=== PATIENT | male | born 1960 | race Caucasian/White ===

== ENCOUNTER 2019-09-01 08:15 | Emergency (ER) | payer BC, SELFPAY ==
--- NOTE | 2019-09-01 08:20 | USCV_ITS ---
Jimi Fuller Age: 59 Gender: M : 1960 Exam Date: 09/01/2019 09:24 Ordering Phys: Holly Moreno Technologist: Mercedez Dunbar Exam Location: [facility] [place] Indication: cold left leg Risk Factors: Smoker Previous Vascular Surgery: None RIGHT LEFT BP: 108.0 / BP: 106.0/ 0 0 Waveform Velocity (cm/s) Velocity (cm/s) Waveform Iliac Prox 67.6 Triphasic Iliac Mid 48.2 Triphasic Iliac Distal Triphasic 36.8 PELLET POST INSPECTOR 67.7 Triphasic SFA Prox 40.1 Triphasic SFA Mid 59.2 Triphasic SFA Dist 32.0 Triphasic POP 26.1 Triphasic MOTORCYCLE SERVICE TECHNICIAN 42.7 Triphasic DPA 36.8 Triphasic RAND 1.1 FINDINGS Normal resting RAND on the left side. Normal arterial Doppler waveforms. Normal Doppler flow velocities CONCLUSIONS No evidence of any significant arterial obstruction, based on the above findings. Dr Stefan Tsang MD [facility] (Electronically Signed) Final Date: 02 September 2019 09:27 S
[2019-09-01 08:22] VITALS: BP 112/85; PULSE 84; RESP 18; O2SAT 94; BMI 36.3
[2019-09-01 08:32] VITALS: BP 117/76; PULSE 93; RESP 18; TEMP 36.7; O2SAT 96
--- NOTE | 2019-09-01 08:37 | W.ED.EXTPRO ---
HPI - Extremity Problem General: Chief complaint: Extremity Problem,Nontraumatic Stated complaint: LLE COLD, NO PULSE Time Seen by Provider: 09/01/19 08:28 Source: patient Mode of arrival: ambulatory Limitations: no limitations History of Present Illness: HPI Narrative: Patient is a 59-year-old male who presents to ED today with complaints of coolness to his left lower extremity that he noticed a few days ago. 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 He denies any history of peripheral vascular disease. He is not complaining of pain but again has chronic sensory deficits. MD Complaint: cold extremity Onset (ago): day(s) Location: left Associated symptoms: Reports no associated symptoms; Deny chest pain or fever(s) Review of Systems Const: Denies: fever, chills, body aches, change in appetite, change in weight, fatigue or malaise Card: Denies: chest pain, palpitations, irregular heart rhythm, edema, swelling of feet/ankles, lightheadedness, syncope or pre-syncope Resp: Denies: shortness of breath, productive cough, pain on inspiration, coughing up blood or chest congestion Musc: Denies: back pain, extremity pain, extremity swelling, joint pain, joint swelling, redness, joint warmth or joint stiffness Neuro: Reports: numbness in extremities (chronic bilateral LEs); Denies: headache or changes in sensation PFSH ED PFSH: Social History Smoking and tobacco status: never smoked Physical Exam Const: COMMON NORMALS: no apparent distress, oriented x3, no limitations, alert and well nourished NUTRITIONAL APPEARANCE: obese Resp: COMMON NORMALS: normal respiratory effort and clear to auscultation bilaterally AUSCULTATION: clear to auscultation bilaterally Cardio: COMMON NORMALS: regular rate and regular rhythm RATE: regular rate RHYTHM: regular rhythm Extremity: OTHER: Patient's left ankle and foot are noticeably cooler than his right. He has a clearly palpable DP pulse. Weakly palpable PT pulse. Femoral pulses are palpated. Extremity is warm and equal to his right from groin down to lower leg. There is no swelling noticed to either extremity. No redness or warmth. Neuro: COMMON NORMALS: oriented x3 SENSORIUM/ORIENTATION: Yes alert Skin: COMMON NORMALS: no rashes or lesions noted GENERAL SKIN EXAM: no rashes or lesions noted, atrophy (bilateral LEs chronically), no ecchymo, no erythema, no petechiae and no pallor Course Vital Signs: Vital signs: Vital Signs Temperature 98.1 F 09/01/19 08:32 Pulse Rate 68 09/01/19 10:06 Respiratory Rate 16 09/01/19 10:06 Blood Pressure 126/73 09/01/19 10:06 Pulse Oximetry 96 09/01/19 10:06 MDM - Extremity (Nontraumatic) Lab Data: Labs: Lab Results 09/01/19 09/01/19 09/01/19 Range/Units 08:50 08:50 08:50 WBC 8.6 (4.0-10.0) 10^3/ uL RBC 5.01 (4.1-5.3) 10^6/u L Hgb 14.9 (11.7-16.6) g/dL Hct 45.2 (42.0-52.0) % MCV 90.2 (80-94) fL MCH 29.7 (28.0-34.0) pg MCHC 33.0 (30.0-36.0) g/dL RDW 13.0 (12.1-15.1) % Plt Count 219 (130-400) 10^3/c mm MPV 11.1 H (7.4-10.4) fL Neut % (Auto) 60.4 % Lymph % (Auto) 24.4 % [place] % (Auto) 12.0 % Eos % (Auto) 2.1 % Baso % (Auto) 0.6 % Neut # (Auto) 5.2 (1.8-7.7) 10^3/u L Lymph # (Auto) 2.1 (0.8-4.8) 10^3/u L [place] # (Auto) 1.0 H (0.2-0.9) 10^3/u L Eos # (Auto) 0.2 (0.0-0.8) 10^3/u L Baso # (Auto) 0.1 (0.0-0.1) 10^3/u L Nucleated RBC % (a uto) 0 % Nucleated RBCs # 0.0 /100WBC PT 13.50 H (10.5-13.3) SECO NDS INR 1.03 (0.8-1.2) APTT 27.7 (23.9-36.7) SECO NDS Sodium 137 (136-145) mmol/L Potassium 3.9 (3.5-5.1) mmol/L Chloride 102 (98-107) mmol/L Carbon Dioxide 22 (22-29) mmol/L Anion Gap 16.9 (5-19) BUN 13 (6-20) mg/dL Creatinine 0.7 (0.7-1.2) mg/dL GFR Calculation 116.2 (90-130) mL/min Glucose 102 (65-115) mg/dL Calcium 9.5 (8.5-10.5) mg/dL Total Bilirubin 0.5 (0.15-1.2) mg/dL AST 16 (0-40) U/L ALT 17 (0-41) U/L Alkaline Phosphata se 65 (40-130) IU/L Total Protein 7.0 (6.6-8.7) g/dL Albumin 3.5 (3.5-5.2) g/dL Globulin 3.5 (1.3-4.6) g/dL Imaging Data^: US L LE arterial : Radiologist's impression: triphasic flow throughout entire extremity per US tech Discharge Plan Discharge Patient Disposition: Home, Self-Care Clinical Impression: Cold extremity without peripheral vascular disease Condition: Stable Prescriptions: No Action No Known Home Medications RF: 0 Discharge Orders: Discharge Order (Routine); Ordered 09/01/19 Ordered By: Holly Moreno Referrals: Eldon Waite MD [Family Provider] - Discharge Diet: Usual diet Discharge Activity: Resume usual activity Activity Restrictions/Additional Instructions: As discussed, your arterial ultrasound showed triphasic flow throughout your entire left lower extremity. Please follow up with primary care in the next 1-2 weeks for further evaluation. Discharge Date/Time: 09/01/19 10:43 Coding Level of Care Code ED Set Up Mechanic Stamping Machines for Cat León
[2019-09-01 08:55] LABS: Basophils # 0.1 10^3/uL (0.0-0.1); Basophils % 0.6 %; Eosinophils # 0.2 10^3/uL (0.0-0.8); Eosinophils % 2.1 %; Hematocrit 45.2 % (42.0-52.0); Hemoglobin 14.9 g/dL (11.7-16.6); Lymphocytes # 2.1 10^3/uL (0.8-4.8); Lymphocytes % 24.4 %; Mean Corpuscular Hemoglobin 29.7 pg (28.0-34.0); Mean Corpuscular Volume 90.2 fL (80-94); Mean Platelet Volume 11.1 fL (7.4-10.4); Neutrophils # 5.2 10^3/uL (1.8-7.7); Neutrophils % 60.4 %; Nucleated Red Blood Cells % 0 %; Platelet Count 219 10^3/cmm (130-400); Red Blood Count 5.01 10^6/uL (4.1-5.3); White Blood Count 8.6 10^3/uL (4.0-10.0)
[2019-09-01 09:09] LABS: Alanine Aminotransferase 17 U/L (0-41); Albumin Level 3.5 g/dL (3.5-5.2); Alkaline Phosphatase 65 IU/L (40-130); Anion Gap 16.9 (5-19); Aspartate Amino Transferase 16 U/L (0-40); Blood Urea Nitrogen 13 mg/dL (6-20); Calcium 9.5 mg/dL (8.5-10.5); Carbon Dioxide 22 mmol/L (22-29); Chloride 102 mmol/L (98-107); Globulin 3.5 g/dL (1.3-4.6); Glomerular Filtration Rate 116.2 mL/min (90-130); Glucose 102 mg/dL (65-115); Potassium 3.9 mmol/L (3.5-5.1); Sodium 137 mmol/L (136-145); Total Bilirubin 0.5 mg/dL (0.15-1.2)
[2019-09-01 09:21] LABS: INR 1.03 (0.8-1.2); Partial Thromboplastin Time 27.7 SECONDS (23.9-36.7)
--- NOTE | 2019-09-01 09:39 | PC.NURSE ---
US at bedside. Patient requesting fluids, informed NPO
[2019-09-01 10:06] VITALS: BP 126/73; PULSE 68; RESP 16; O2SAT 96
== END 2019-09-01 10:43 | disposition home or self-care (01) ==
PROVIDERS: Emergency Provider Physician Assistant; Family Provider Family Medicine; PCP Nurse Practitioner Family
DX: R20.8 Other disturbances of skin sensation (principal); G82.20 Paraplegia, unspecified
CPT/HCPCS: 36415; 80053; 85025; 85610; 85730; 93926; 99282; 99283

== ENCOUNTER → 2022-02-24 08:22 | Outpatient (BNVA) | payer MEDICARE, MEDICAID, SELFPAY | PROVIDERS: Family Provider Family Medicine; PCP Nurse Practitioner Family; Visit Provider Thoracic Surgery (Cardiothoracic Vascular Surgery) | DX: I96 Gangrene, not elsewhere classified (principal); L89.322 Pressure ulcer of left buttock, stage 2 | CPT/HCPCS: 11042; 99203; 99213; A6446 ==

== ENCOUNTER → 2022-02-26 14:57 | Outpatient (BNVA) | payer MEDICARE, MEDICAID, SELFPAY | PROVIDERS: Family Provider Family Medicine; PCP Nurse Practitioner Family; Visit Provider Thoracic Surgery (Cardiothoracic Vascular Surgery) | DX: L89.323 Pressure ulcer of left buttock, stage 3 (principal) | CPT/HCPCS: 99211; A6212; A6446 ==

== ENCOUNTER 2022-02-27 15:32 | Outpatient (CLI) | payer MEDICARE, MEDICAID, SELFPAY ==
--- NOTE | 2022-02-27 15:42 | XRR_ITS ---
PROCEDURE INFORMATION: Exam: XR Pelvis Exam date and time: 02/27/2022 3:53 PM Age: 62 years old Clinical indication: Other: Pressure ulcer of left buttock; Prior surgery; Surgery type: Pelvis bone spurs; Additional info: L89.320 - pressure ulcer of left buttock, unstageable TECHNIQUE: Imaging protocol: Radiologic exam of the pelvis. Views: 1 or 2 view. COMPARISON: No relevant prior studies available. FINDINGS: Bones/joints: Moderate osteoarthritis of the hips bilaterally. Chronic soft tissue calcifications about the hips bilaterally. Soft tissues: See Bones/joints finding. XR/XR pelvis min 3V [id number] IMPRESSION: 1. Moderate osteoarthritis of the hips bilaterally. 2. Chronic soft tissue calcifications about the hips bilaterally.
== END 2022-02-27 15:33 | disposition home or self-care (01) ==
LOC: RAD 15:36
PROVIDERS: PCP Family Medicine; Visit Provider Thoracic Surgery (Cardiothoracic Vascular Surgery)
DX: L89.320 Pressure ulcer of left buttock, unstageable (principal); M16.0 Bilateral primary osteoarthritis of hip
CPT/HCPCS: 72190

== ENCOUNTER → 2022-03-17 08:41 | Outpatient (BNVA) | payer MEDICARE, MEDICAID, SELFPAY | PROVIDERS: PCP Family Medicine; Visit Provider Nurse Practitioner Family | DX: I96 Gangrene, not elsewhere classified (principal); L89.323 Pressure ulcer of left buttock, stage 3 | CPT/HCPCS: 11042; A6197 ==

== ENCOUNTER → 2022-03-24 09:05 | Outpatient (BNVA) | payer MEDICARE, MEDICAID, SELFPAY | PROVIDERS: PCP Family Medicine; Visit Provider Thoracic Surgery (Cardiothoracic Vascular Surgery) | DX: I96 Gangrene, not elsewhere classified (principal); L89.323 Pressure ulcer of left buttock, stage 3 | CPT/HCPCS: 11042; 11043; A6446 ==

== ENCOUNTER 2022-03-27 12:24 | Outpatient (CLI) | payer MEDICARE, MEDICAID, SELFPAY ==
--- NOTE | 2022-03-27 13:00 | CT_ITS ---
WS: [id number] CT ABDOMEN AND PELVIS WITH CONTRAST HISTORY: L89.324 - Pressure ulcer of left buttock, stage 4 TECHNIQUE: Imaging performed of the abdomen and pelvis with IV contrast. Single phase imaging of the abdomen. Coronal and sagittal reformats are submitted. All CT scans at [facility] use at [address] one of these dose optimization techniques: automated exposure control; mA and/or kV adjustment per patient size (includes targeted exams where dose is matched to clinical indication); or iterative re construction. IV CONTRAST: Omnipaque 350; 95 mL IV. Oral contrast: No DLP: 1354.93 mGy.cm COMPARISON: None available. Lower thorax: Lung bases are clear. Heart is normal size. No hiatal hernia. Liver/biliary system: Normal size with no intrahepatic dilatation. Gallbladder: Normal. No gallstones or wall thickening. No pericholecystic fluid. Pancreas: Normal size pancreas and pancreatic duct. No adjacent inflammation. Spleen: Normal size spleen. No mass or infarct. Adrenal glands: Normal. Right kidney: Normal size kidney. There is a focal scar and cortical thinning in the mid kidney. No o bstruction or mass. Left kidney: Mild atrophy of the LEFT kidney. Multifocal areas of cortical thinning. There is no obst ruction or mass. Cortical cyst 12 mm mid kidney. Aorta: Mild atherosclerosis with no aneurysm. Lymphadenopathy: None. Free fluid: None. GI tract: Normal appearing stomach. No small bowel obstruction. Normal appendix. No GI obstruction. Abdominal wall: Unremarkable abdominal wall. No hernia. Pelvis: No free fluid or adenopathy within the pelvis. The urinary bladder is well distended. There i s very mild diffuse irregular wall thickening but no mass. This is probably due to outlet obstruction . There is a large soft tissue tract containing air within the LEFT posterior pelvis extending through the gluteal soft tissues by 10 cm. The track extends to and abuts the inferior pubic rami. There are small osseous fragments adjacent to the ischial tuberosity and there is sclerosis suggesting healed a nd treated osteomyelitis. No focal lucency or cortical destruction. There is mild wall thickening jace ng the tract but no enhancing fluid collection. Wall thickness measures up to 12 mm. Several small fo ci of air continues superiorly along the LEFT gluteal alfredito muscle. There is an remote healed tract in the posterior RIGHT pelvis which extends towards the RIGHT ischial tuberosity. Sclerosis in the RIGHT ischium indicates healed osteomyelitis. Heterotopic bone formatio n extends lateral from the RIGHT greater tuberosity. Bones: RIGHT lateral curvature lumbar spine. CT/CT abdomen pelvis w con* [id number] IMPRESSION: 1. Air-containing soft tissue tract over the posterior LEFT pelvis extends to the ischial tuberosity. There is mild wall thickening but no enhancing collecti on or abscess. Tract extends over a length of 10 cm. Sclerotic changes in the L EFT ischial tuberosity from remote healed osteomyelitis. No new bone destructio n identified. 2. Healed decubitus ulcer tract in the posterior RIGHT pelvis with healed oste omyelitis at the RIGHT ischial tuberosity. 3. 1
[2022-03-27 13:44] LABS: Blood Urea Nitrogen 12 mg/dL (8-23); Glomerular Filtration Rate 98.6 mL/min (90-130)
[2022-03-27] MEDS: iohexol 350 mg/mL 100 mL Btl IV (13:50)
== END 2022-03-27 12:25 ==
PROVIDERS: PCP Family Medicine; Visit Provider Thoracic Surgery (Cardiothoracic Vascular Surgery)
DX: L89.323 Pressure ulcer of left buttock, stage 3 (principal); I96 Gangrene, not elsewhere classified
CPT/HCPCS: 11042; 74177; 82565; 84520; 87070; 87176; 87205

== ENCOUNTER → 2022-03-31 09:18 | Outpatient (BNVA) | payer MEDICARE, MEDICAID, SELFPAY | PROVIDERS: PCP Family Medicine; Visit Provider Thoracic Surgery (Cardiothoracic Vascular Surgery) | DX: I96 Gangrene, not elsewhere classified (principal); L89.323 Pressure ulcer of left buttock, stage 3 | CPT/HCPCS: 11043; A6446 ==

== ENCOUNTER → 2022-04-07 09:19 | Outpatient (BNVA) | payer MEDICARE, MEDICAID, SELFPAY | PROVIDERS: PCP Family Medicine; Visit Provider Thoracic Surgery (Cardiothoracic Vascular Surgery) | DX: I96 Gangrene, not elsewhere classified (principal); L89.323 Pressure ulcer of left buttock, stage 3 | CPT/HCPCS: 11042; A6446 ==

== ENCOUNTER → 2022-04-14 09:39 | Outpatient (BNVA) | payer MEDICARE, MEDICAID, SELFPAY | PROVIDERS: PCP Family Medicine; Visit Provider Thoracic Surgery (Cardiothoracic Vascular Surgery) | DX: I96 Gangrene, not elsewhere classified (principal); L89.323 Pressure ulcer of left buttock, stage 3 | CPT/HCPCS: 11042; A6446 ==

== ENCOUNTER → 2022-04-28 09:03 | Outpatient (BNVA) | payer MEDICARE, MEDICAID, SELFPAY | PROVIDERS: PCP Family Medicine; Visit Provider Thoracic Surgery (Cardiothoracic Vascular Surgery) | DX: I96 Gangrene, not elsewhere classified (principal); L89.323 Pressure ulcer of left buttock, stage 3 | CPT/HCPCS: 11042; A6446 ==

== ENCOUNTER → 2022-05-12 08:58 | Outpatient (BNVA) | payer MEDICARE, MEDICAID, SELFPAY | PROVIDERS: PCP Family Medicine; Visit Provider Thoracic Surgery (Cardiothoracic Vascular Surgery) | DX: I96 Gangrene, not elsewhere classified (principal); L89.323 Pressure ulcer of left buttock, stage 3 | CPT/HCPCS: 11042; A6446 ==

== ENCOUNTER → 2022-06-02 09:41 | Outpatient (BNVA) | payer MEDICARE, MEDICAID, SELFPAY | PROVIDERS: PCP Family Medicine; Visit Provider Nurse Practitioner Family | DX: I96 Gangrene, not elsewhere classified (principal); L89.323 Pressure ulcer of left buttock, stage 3 | CPT/HCPCS: 11042; A6446 ==

== ENCOUNTER → 2022-06-09 09:19 | Outpatient (BNVA) | payer MEDICARE, MEDICAID, SELFPAY | PROVIDERS: PCP Family Medicine; Visit Provider Nurse Practitioner Family | DX: I96 Gangrene, not elsewhere classified (principal); L89.323 Pressure ulcer of left buttock, stage 3 | CPT/HCPCS: 11042; 97605; A6237; A6250 ==

== ENCOUNTER → 2022-06-16 09:03 | Outpatient (BNVA) | payer MEDICARE, MEDICAID, SELFPAY | PROVIDERS: PCP Family Medicine; Visit Provider Nurse Practitioner Family | DX: I96 Gangrene, not elsewhere classified (principal); L89.323 Pressure ulcer of left buttock, stage 3 | CPT/HCPCS: 11042; A6237; A6250 ==

== ENCOUNTER → 2022-06-23 08:46 | Outpatient (BNVA) | payer MEDICARE, MEDICAID, SELFPAY | PROVIDERS: PCP Family Medicine; Visit Provider Thoracic Surgery (Cardiothoracic Vascular Surgery) | DX: I96 Gangrene, not elsewhere classified (principal); L89.323 Pressure ulcer of left buttock, stage 3 | CPT/HCPCS: 11042; A6446 ==

== ENCOUNTER → 2022-07-01 08:28 | Outpatient (BNVA) | payer MEDICARE, MEDICAID, SELFPAY | PROVIDERS: PCP Family Medicine; Visit Provider Thoracic Surgery (Cardiothoracic Vascular Surgery) | DX: I96 Gangrene, not elsewhere classified (principal); L89.323 Pressure ulcer of left buttock, stage 3 | CPT/HCPCS: 11042; A6446 ==

== ENCOUNTER → 2022-07-14 09:02 | Outpatient (BNVA) | payer MEDICARE, MEDICAID, SELFPAY | PROVIDERS: PCP Family Medicine; Visit Provider Thoracic Surgery (Cardiothoracic Vascular Surgery) | DX: I96 Gangrene, not elsewhere classified (principal); L89.323 Pressure ulcer of left buttock, stage 3 | CPT/HCPCS: 11042; A6446 ==

== ENCOUNTER → 2022-07-21 10:08 | Outpatient (BNVA) | payer MEDICARE, SELFPAY | PROVIDERS: PCP Family Medicine; Visit Provider Thoracic Surgery (Cardiothoracic Vascular Surgery) | DX: I96 Gangrene, not elsewhere classified (principal); L89.323 Pressure ulcer of left buttock, stage 3 | CPT/HCPCS: 11042 ==

== ENCOUNTER → 2022-07-28 11:37 | Outpatient (BNVA) | payer MEDICARE, MEDICAID, SELFPAY | PROVIDERS: PCP Family Medicine; Visit Provider Thoracic Surgery (Cardiothoracic Vascular Surgery) | DX: I96 Gangrene, not elsewhere classified (principal); L89.324 Pressure ulcer of left buttock, stage 4 | CPT/HCPCS: 11044; A6446 ==

== ENCOUNTER 2022-08-06 06:00 | Outpatient (RCR) | payer MEDICARE, MEDICAID, SELFPAY | END 2022-09-02 23:59 | disposition home or self-care (01) | LOC: SOT 06:00 | PROVIDERS: PCP Family Medicine; Visit Provider Thoracic Surgery (Cardiothoracic Vascular Surgery) | DX: L89.324 Pressure ulcer of left buttock, stage 4 (principal); G82.20 Paraplegia, unspecified | CPT/HCPCS: 97167 ==

== ENCOUNTER → 2022-08-18 09:44 | Outpatient (BNVA) | payer MEDICARE, MEDICAID, SELFPAY | PROVIDERS: PCP Family Medicine; Visit Provider Thoracic Surgery (Cardiothoracic Vascular Surgery) | DX: I96 Gangrene, not elsewhere classified (principal); L89.324 Pressure ulcer of left buttock, stage 4 | CPT/HCPCS: 11042; A6219; A6446 ==

== ENCOUNTER → 2022-08-27 11:08 | Outpatient (BNVA) | payer MEDICARE, MEDICAID, SELFPAY | PROVIDERS: PCP Family Medicine; Visit Provider Thoracic Surgery (Cardiothoracic Vascular Surgery) | DX: I96 Gangrene, not elsewhere classified (principal); L89.324 Pressure ulcer of left buttock, stage 4 | CPT/HCPCS: 11042; A6446 ==

== ENCOUNTER → 2022-09-01 16:17 | Outpatient (BNVA) | payer MEDICARE, MEDICAID, SELFPAY | PROVIDERS: PCP Family Medicine; Visit Provider Thoracic Surgery (Cardiothoracic Vascular Surgery) | DX: I96 Gangrene, not elsewhere classified (principal); L89.324 Pressure ulcer of left buttock, stage 4 | CPT/HCPCS: 11042; A6219; A6446 ==

== ENCOUNTER 2022-09-05 11:44 | Emergency (ER) | payer MEDICARE, MEDICAID, SELFPAY ==
--- NOTE | 2022-09-05 11:57 | XRR_ITS ---
PROCEDURE INFORMATION: Exam: XR Right Foot Exam date and time: 09/05/2022 12:05 PM Age: 62 years old Clinical indication: Other: Redness; Patient HX: History--rt 2nd toe infection; Additional info: 2nd toe pain TECHNIQUE: Imaging protocol: Radiologic exam of the right foot. Views: 3 or more views. COMPARISON: No relevant prior studies available. FINDINGS: Bones/joints: Bones are demineralized. There are no osteolytic or destructive bone changes. There is no fracture detected. There are degenerative changes 1st MTP joint with slight hallux valgus deformity. Soft tissues: Normal. XR/XR foot RT min 3V* [id number] IMPRESSION: No acute bony abnormalities.
[2022-09-05 11:58] VITALS: BP 91/61; PULSE 84; RESP 18; TEMP 36.8; O2SAT 96
--- NOTE | 2022-09-05 12:20 | W.ED.EXTPRO ---
HPI - Extremity Problem General: Chief complaint: Extremity Problem,Nontraumatic Stated complaint: right foot, second toe pain Time Seen by Provider: 09/05/22 11:47 History of Present Illness: Pt Is a 62-year-old male comes to the ED with right foot second toe complaint. Patient is paraplegic and uses wheelchair. Approximately 5 days ago he picked off the nail on his second toe. Since then he has been having redness and sore on toe. Over the past couple days he has developed a red and warm rash on his right lower leg as well. He is unable to feel from the waist down so denies any pain in lower legs. Denies any fever. He states that he has had some puslike drainage coming out of wound on second great toe. Patient currently sees wound care clinic for a pressure ulcer on buttock. Associated symptoms: Deny chest pain, fever(s) or rash Review of Systems Const: Denies: fever(s), chills or fatigue Eyes: Denies: change in vision or eye discomfort ENMT: Denies: throat pain, odynophagia, nasal discharge or nasal congestion Card: Denies: chest pain, palpitations, edema, swelling of feet/ankles, dyspnea on exertion or orthopnea Resp: Denies: dyspnea, productive cough or non-productive cough GI: Denies: abdominal pain, nausea, vomiting, diarrhea, constipation or hematochezia : Denies: flank pain, difficulty urinating, dysuria or hematuria Musc: Denies: neck pain, back pain or extremity swelling Skin/Breast: Reports: new lesions (Wound on second toe right foot); Denies: rash Neuro: Denies: headache(s), numbness in extremities or weakness in extremities PFS ED PFSH: Medical History No pertinent family history Paraplegia Social History Smoking and tobacco status: never smoked Physical Exam Const: COMMON NORMALS: no acute distress, patient oriented x3 and alert EXAM LIMITATIONS: physical limitations (Paraplegic) GENERAL APPEARANCE: cooperative HENMT: COMMON NORMALS: normocephalic HEAD & SCALP: normocephalic MOUTH: Normal oral and palatal mucosa present THROAT: posterior oropharynx normal and uvula midline Neck/C-Spine: COMMON NORMALS: supple GENERAL: Yes normal visual inspection Resp: COMMON NORMALS: normal respiratory effort, No retractions, No use of accessory muscles and clear to auscultation bilaterally AUSCULTATION: clear to auscultation bilaterally Cardio: COMMON NORMALS: regular rate, regular rhythm, S1 normal heart sound present, S2 normal heart sound present, No gallops present (Cardio), No clicks present (Cardio), No murmurs present (Cardio) and Peripheral pulses 2+ throughout RATE: regular rate RHYTHM: regular rhythm HEART SOUNDS: S1 normal heart sound present and S2 normal heart sound present PERIPHERAL PULSES: Peripheral pulses 2+ throughout GI: COMMON NORMALS: Normal to inspection, nondistended, normoactive bowel sounds present, Soft to palpation, non-tender and no masses PALPATION: Yes Soft to palpation : COMMON NORMALS: Yes no CVA tenderness BLADDER/KIDNEY EXAM: Yes no CVA tenderness Back/Pelvis: COMMON NORMALS: no CVA tenderness Extremity: NARRATIVE EXTREMITY EXAM: Right foot?second great toe is red, swollen and breakdown of skin around the nailbed area. Patient also has some red streaking up into his right lower leg that is warm as well. Neuro: COMMON NORMALS: patient oriented x3 SENSORIUM/ORIENTATION: Yes alert GAIT: Yes Normal gait present Skin: GENERAL SKIN EXAM: dry skin Course Vital Signs: Vital signs: Vital Signs Temperature 98.2 F 09/05/22 11:58 Pulse Rate 84 09/05/22 11:58 Respiratory Rate 18 09/05/22 11:58 Blood Pressure 91/61 09/05/22 11:58 Pulse Oximetry 96 09/05/22 11:58 Oxygen Delivery Me thod 09/05/22 11:58 MDM - Extremity (Nontraumatic) Medical Decision Making Pt Is a 62-year-old male comes to the ED with right foot second toe complaint. Patient is paraplegic and uses wheelchair. Approximately 5 days ago he picked off the nail on his second toe. Since then he has been having redness and sore on toe. Over the past couple days he has developed a red and warm rash on his right lower leg as well. He is unable to feel from the waist down so denies any pain in lower legs. Denies any fever. Vitals are stable. Right foot?second great toe is red, swollen and breakdown of skin around the nailbed area. Patient also has some red streaking up into his right lower leg that is warm as well. White blood cell count 8 and the rest of CBC and CMP are unremarkable. Lactic 1.4. CRP is elevated 87.2. X-ray of right foot shows no acute findings. Patient was given IV vancomycin here in the ED and was stable for discharge home for outpatient treatment. I placed order with case management for patient to be referred to wound care clinic for follow-up on right great toe wound and cellulitis. Patient sent home with a prescription for Bactrim. He was given strict return to ED precautions. Patient understood and agreed with plan. Lab Data I reviewed the patient's lab results. 09/05/22 13:00 09/05/22 13:00 Radiology Impressions Foot X-Ray 09/05/22 11:57 IMPRESSION: No acute bony abnormalities. Laboratory Results WBC 8.1 10^3/uL (4.0-10.0) 09/05/22 13:00 RBC 4.57 10^6/uL (4.1-5.3) 09/05/22 13:00 Hgb 13.2 g/dL (11.7-16.6) 09/05/22 13:00 Hct 40.4 % (42.0-52.0) L 09/05/22 13:00 MCV 88.4 fl (80-94) 09/05/22 13:00 MCH 28.9 pg (28.0-34.0) 09/05/22 13:00 MCHC 32.7 g/dL (30.0-36.0) 09/05/22 13:00 RDW 14.1 % (12.1-15.1) 09/05/22 13:00 Plt Count 251 10^3/cmm (130-400) 09/05/22 13:00 MPV 10.3 fL (7.4-10.4) 09/05/22 13:00 Neut % (Auto) 75.5 % 09/05/22 13:00 Lymph % (Auto) 11.1 % 09/05/22 13:00 [place] % (Auto) 11.6 % 09/05/22 13:00 Eos % (Auto) 1.0 % 09/05/22 13:00 Baso % (Auto) 0.6 % 09/05/22 13:00 Neut # (Auto) 6.10 10^3/uL (1.8-7.7) 09/05/22 13:00 Lymph # (Auto) 0.9 10^3/uL (0.8-4.8) 09/05/22 13:00 [place] # (Auto) 0.9 10^3/uL (0.2-0.9) 09/05/22 13:00 Eos # (Auto) 0.1 10^3/uL (0.0-0.8) 09/05/22 13:00 Baso # (Auto) 0.1 10^3/uL (0.0-0.1) 09/05/22 13:00 Nucleated RBC % (auto) 0 % 09/05/22 13:00 Nucleated RBCs # 0.0 /100WBC 09/05/22 13:00 Sodium 136 mmol/L (136-145) 09/05/22 13:00 Potassium 4.2 mmol/L (3.5-5.1) 09/05/22 13:00 Chloride 101 mmol/L (98-107) 09/05/22 13:00 Carbon Dioxide 23 mmol/L (22-29) 09/05/22 13:00 Anion Gap 16.2 (5-19) 09/05/22 13:00 BUN 10 mg/dL (8-23) 09/05/22 13:00 Creatinine 0.7 mg/dL (0.7-1.2) 09/05/22 13:00 GFR Calculation 115.0 mL/min (90-130) 09/05/22 13:00 Glucose 139 mg/dL (65-115) H 09/05/22 13:00 Calculated Osmolality 283 mOsm/kg (285-295) L 09/05/22 13:00 Lactic Acid 1.4 mmol/L (0.5-2.2) 09/05/22 13:00 Calcium 8.6 mg/dL (8.5-10.5) 09/05/22 13:00 Total Bilirubin 0.2 mg/dL (0.15-1.2) 09/05/22 13:00 AST 10 U/L (0-40) 09/05/22 13:00 ALT 8 U/L (0-41) 09/05/22 13:00 Alkaline Phosphatase 70 U/L (40-130) 09/05/22 13:00 C-Reactive Protein 87.2 mg/L (0.0-4.9) H 09/05/22 13:00 Total Protein 6.6 g/dL (6.6-8.7) 09/05/22 13:00 Albumin 3.3 g/dL (3.5-5.2) L 09/05/22 13:00 Globulin 3.3 g/dL (1.3-4.6) 09/05/22 13:00 Discharge Plan Discharge Patient Disposition: Home Clinical Impression: Cellulitis Qualifiers: Site of cellulitis: extremity Site of cellulitis of extremity: toe Laterality: right Qualified Code(s): L03.031 - Cellulitis of right toe Condition: Stable Prescriptions: New Bactrim DS 800-160 mg tablet 1 tab PO BID 10 Days Qty: 20 0RF No Action sulfamethoxazole-trimethoprim [Bactrim DS] 800-160 mg tablet 1 tab PO BID Qty: 10 4RF linezolid [Zyvox] 600 mg tablet 600 mg PO BID Qty: 28 0RF Discharge Orders: Discharge ED (Routine); Ordered 09/05/22 Ordered By: Semaj Martínez Referrals: Eldon Waite MD [Primary Care Provider] - Discharge Diet: Regular Discharge Activity: Increase activity as tolerated Patient Instructions: Cellulitis (ED) Activity Restrictions/Additional Instructions: Follow-up with PCP within the next 5 to 7 days for further evaluation. Case management should be counting in the next several days to set up an appointment with wound care for them to follow and evaluate right toe wound. Take medications as prescribed. Return to the ER or your medical provider if condition worsens. Please read and understand discharge instructions. Thank you for choosing [facility] for your healthcare needs today. Please realize this is an emergency room and that we are providing you with a medical screening exam and this may not be complete and all inclusive of all the testing and or work up that you may need to determine your ailment or severity of your illness. It is very important that you follow up as instructed or that you return to the Emergency Department should you have concerns or if your condition changes or worsens in any way. Coding Level of Care Code ED Cad Technician for Cat León
[2022-09-05 13:17] LABS: Basophils # 0.1 10^3/uL (0.0-0.1); Basophils % 0.6 %; Eosinophils # 0.1 10^3/uL (0.0-0.8); Hematocrit 40.4 % (42.0-52.0); Hemoglobin 13.2 g/dL (11.7-16.6); Lymphocytes # 0.9 10^3/uL (0.8-4.8); Lymphocytes % 11.1 %; Mean Corpuscular HGB Conc 32.7 g/dL (30.0-36.0); Mean Corpuscular Hemoglobin 28.9 pg (28.0-34.0); Mean Corpuscular Volume 88.4 fl (80-94); Mean Platelet Volume 10.3 fL (7.4-10.4); Monocytes # 0.9 10^3/uL (0.2-0.9); Monocytes % 11.6 %; Neutrophils % 75.5 %; Nucleated Red Blood Cells % 0 %; Platelet Count 251 10^3/cmm (130-400); Red Blood Count 4.57 10^6/uL (4.1-5.3); Red Cell Distribution Width 14.1 % (12.1-15.1); White Blood Count 8.1 10^3/uL (4.0-10.0)
[2022-09-05 13:34] LABS: Alanine Aminotransferase 8 U/L (0-41); Albumin Level 3.3 g/dL (3.5-5.2); Alkaline Phosphatase 70 U/L (40-130); Anion Gap 16.2 (5-19); Aspartate Amino Transferase 10 U/L (0-40); Blood Urea Nitrogen 10 mg/dL (8-23); C Reactive Protein 87.2 mg/L (0.0-4.9); Calcium 8.6 mg/dL (8.5-10.5); Carbon Dioxide 23 mmol/L (22-29); Chloride 101 mmol/L (98-107); Globulin 3.3 g/dL (1.3-4.6); Glucose 139 mg/dL (65-115); Osmolality Calculated 283 mOsm/kg (285-295); Potassium 4.2 mmol/L (3.5-5.1); Sodium 136 mmol/L (136-145); Total Bilirubin 0.2 mg/dL (0.15-1.2); Total Protein 6.6 g/dL (6.6-8.7)
[2022-09-05 13:35] LABS: Lactic Sepsis W/Reflex 1.4 mmol/L (0.5-2.2)
[2022-09-05] MEDS: sodium chloride 0.9% 500 ML 999 ML IV (13:56)
[2022-09-05] MEDS: vancomycin 1,500 MG/300 ML PIGGYBACK 200 MG IV (13:57)
[2022-09-05 15:46] VITALS: BP 125/71; PULSE 65; RESP 15; O2SAT 95
--- NOTE | 2022-09-08 09:59 | DCPLANNER ---
Addendum entered by Yamileth Solis 09/17/22 08:30: This appointment was cancelled Addendum entered by Yamileth Solis 09/10/22 07:51: Patient has a follow up appointment scheduled for Thursday, September 15, 2022 at 9:[address] Washburn at [facility]. Clinic will call patient with appointment information. Original Note: fish farm manager had message to schedule a follow up appointment for patient with wound care. fish farm manager sent patients information to the front office staff at [facility]. Patients information will be printed and reviewed. Clinic will call patient with appointment information.
== END 2022-09-05 15:48 | disposition home or self-care (01) ==
PROVIDERS: Emergency Provider Physician Assistant; PCP Family Medicine
DX: L03.031 Cellulitis of right toe (principal); G82.20 Paraplegia, unspecified
CPT/HCPCS: 73630; 80053; 83605; 85025; 86140; 96365; 96366; 99284; J3370; J7040

== ENCOUNTER → 2022-09-22 09:52 | Outpatient (BNVA) | payer MEDICARE, MEDICAID, SELFPAY | PROVIDERS: PCP Family Medicine; Visit Provider Thoracic Surgery (Cardiothoracic Vascular Surgery) | DX: I96 Gangrene, not elsewhere classified (principal); L89.324 Pressure ulcer of left buttock, stage 4 | CPT/HCPCS: 11042; A6446 ==

== ENCOUNTER → 2022-10-06 09:37 | Outpatient (BNVA) | payer MEDICARE, MEDICAID, SELFPAY | PROVIDERS: PCP Family Medicine; Visit Provider Thoracic Surgery (Cardiothoracic Vascular Surgery) | DX: L89.324 Pressure ulcer of left buttock, stage 4 (principal) | CPT/HCPCS: 11042; A6446 ==

== ENCOUNTER → 2022-10-20 09:38 | Outpatient (BNVA) | payer MEDICARE, MEDICAID, SELFPAY | PROVIDERS: PCP Family Medicine; Visit Provider Thoracic Surgery (Cardiothoracic Vascular Surgery) | DX: L89.324 Pressure ulcer of left buttock, stage 4 (principal) | CPT/HCPCS: 11042; A6446 ==

== ENCOUNTER → 2022-11-03 09:20 | Outpatient (BNVA) | payer MEDICARE, MEDICAID, SELFPAY | PROVIDERS: PCP Family Medicine; Visit Provider Thoracic Surgery (Cardiothoracic Vascular Surgery) | DX: L89.324 Pressure ulcer of left buttock, stage 4 (principal) | CPT/HCPCS: 11042; A6446 ==

== ENCOUNTER → 2022-11-17 09:37 | Outpatient (BNVA) | payer MEDICARE, MEDICAID, SELFPAY | PROVIDERS: PCP Family Medicine; Visit Provider Thoracic Surgery (Cardiothoracic Vascular Surgery) | DX: I96 Gangrene, not elsewhere classified (principal); L89.324 Pressure ulcer of left buttock, stage 4 | CPT/HCPCS: 11042; A6446 ==

== ENCOUNTER → 2022-12-08 08:38 | Outpatient (BNVA) | payer MEDICARE, MEDICAID, SELFPAY | PROVIDERS: PCP Family Medicine; Visit Provider Thoracic Surgery (Cardiothoracic Vascular Surgery) | DX: I96 Gangrene, not elsewhere classified (principal); L89.324 Pressure ulcer of left buttock, stage 4 | CPT/HCPCS: 11042; A6446 ==

== ENCOUNTER → 2022-12-22 08:43 | Outpatient (BNVA) | payer MEDICARE, MEDICAID, SELFPAY | PROVIDERS: PCP Family Medicine; Visit Provider Thoracic Surgery (Cardiothoracic Vascular Surgery) | DX: I96 Gangrene, not elsewhere classified (principal); L89.324 Pressure ulcer of left buttock, stage 4 | CPT/HCPCS: 11042 ==

== ENCOUNTER → 2023-01-05 09:13 | Outpatient (BNVA) | payer MEDICARE, MEDICAID, SELFPAY | PROVIDERS: PCP Family Medicine; Visit Provider Thoracic Surgery (Cardiothoracic Vascular Surgery) | DX: I96 Gangrene, not elsewhere classified (principal); L89.324 Pressure ulcer of left buttock, stage 4 | CPT/HCPCS: 11042; A6219; A6446 ==

== ENCOUNTER → 2023-01-19 09:08 | Outpatient (BNVA) | payer MEDICARE, MEDICAID, SELFPAY | PROVIDERS: PCP Family Medicine; Visit Provider Nurse Practitioner Family | DX: I96 Gangrene, not elsewhere classified (principal); L89.324 Pressure ulcer of left buttock, stage 4 | CPT/HCPCS: 11042; A6446 ==

== ENCOUNTER → 2023-02-02 08:28 | Outpatient (BNVA) | payer MEDICARE, MEDICAID, SELFPAY | PROVIDERS: PCP Family Medicine; Visit Provider Nurse Practitioner Family | DX: I96 Gangrene, not elsewhere classified (principal); L89.324 Pressure ulcer of left buttock, stage 4 | CPT/HCPCS: 11042; A6220; A6446 ==

== ENCOUNTER → 2023-02-16 08:49 | Outpatient (BNVA) | payer MEDICARE, MEDICAID, SELFPAY | PROVIDERS: PCP Family Medicine; Visit Provider Thoracic Surgery (Cardiothoracic Vascular Surgery) | DX: I96 Gangrene, not elsewhere classified (principal); L89.324 Pressure ulcer of left buttock, stage 4 | CPT/HCPCS: 11042; A6219; A6446 ==

== ENCOUNTER → 2023-03-02 09:46 | Outpatient (BNVA) | payer MEDICARE, MEDICAID, SELFPAY | PROVIDERS: PCP Family Medicine; Visit Provider Thoracic Surgery (Cardiothoracic Vascular Surgery) | DX: I96 Gangrene, not elsewhere classified (principal); L89.324 Pressure ulcer of left buttock, stage 4 | CPT/HCPCS: 11042; A6446 ==

== ENCOUNTER → 2023-03-16 09:11 | Outpatient (BNVA) | payer MEDICARE, MEDICAID, SELFPAY | PROVIDERS: PCP Family Medicine; Visit Provider Thoracic Surgery (Cardiothoracic Vascular Surgery) | DX: I96 Gangrene, not elsewhere classified (principal); L89.324 Pressure ulcer of left buttock, stage 4 | CPT/HCPCS: 11042; A6446 ==

== ENCOUNTER → 2023-04-06 13:03 | Outpatient (BNVA) | payer MEDICARE, MEDICAID, SELFPAY | PROVIDERS: PCP Family Medicine; Visit Provider Thoracic Surgery (Cardiothoracic Vascular Surgery) | DX: I96 Gangrene, not elsewhere classified (principal); L89.324 Pressure ulcer of left buttock, stage 4; R29.90 Unspecified symptoms and signs involving the nervous system; G82.20 Paraplegia, unspecified | CPT/HCPCS: 97597; 99204; A6446 ==

== ENCOUNTER → 2023-04-27 09:46 | Outpatient (BNVA) | payer MEDICARE, MEDICAID, SELFPAY | PROVIDERS: PCP Family Medicine; Visit Provider Nurse Practitioner Family | DX: L89.324 Pressure ulcer of left buttock, stage 4 (principal) | CPT/HCPCS: 11042; A6446 ==

== ENCOUNTER → 2023-05-25 09:54 | Outpatient (BNVA) | payer MEDICARE, MEDICAID, SELFPAY | PROVIDERS: PCP Family Medicine; Visit Provider Specialist | DX: G82.20 Paraplegia, unspecified (principal); L89.324 Pressure ulcer of left buttock, stage 4 | CPT/HCPCS: 87070; 87077; 87186; 97597; 99213; A6446 ==

== ENCOUNTER → 2023-06-11 15:07 | Outpatient (BNVA) | payer MEDICARE, MEDICAID, SELFPAY | PROVIDERS: PCP Family Medicine; Visit Provider Nurse Practitioner Family | DX: L89.324 Pressure ulcer of left buttock, stage 4 (principal) | CPT/HCPCS: 11042; A6446 ==

== ENCOUNTER → 2023-06-22 08:51 | Outpatient (BNVA) | payer MEDICARE, MEDICAID, SELFPAY | PROVIDERS: PCP Family Medicine; Visit Provider Thoracic Surgery (Cardiothoracic Vascular Surgery) | DX: L89.324 Pressure ulcer of left buttock, stage 4 (principal) | CPT/HCPCS: 11042; A6220 ==

== ENCOUNTER → 2023-08-06 13:19 | Outpatient (BNVA) | payer OTHER, SELFPAY | PROVIDERS: PCP Family Medicine; Visit Provider Specialist | DX: G80.1 Spastic diplegic cerebral palsy (principal) | CPT/HCPCS: 64642 ==

== ENCOUNTER → 2023-08-11 10:18 | Outpatient (BNVA) | payer OTHER, SELFPAY | PROVIDERS: PCP Family Medicine; Visit Provider Thoracic Surgery (Cardiothoracic Vascular Surgery) | DX: L89.324 Pressure ulcer of left buttock, stage 4 (principal) | CPT/HCPCS: 11042; A6220; A6251; A6446 ==

== ENCOUNTER → 2023-09-01 09:29 | Outpatient (BNVA) | payer OTHER, SELFPAY | PROVIDERS: PCP Family Medicine; Visit Provider Thoracic Surgery (Cardiothoracic Vascular Surgery) | DX: I96 Gangrene, not elsewhere classified (principal); L89.324 Pressure ulcer of left buttock, stage 4 | CPT/HCPCS: 97597 ==

== ENCOUNTER → 2023-09-15 09:44 | Outpatient (BNVA) | payer OTHER, SELFPAY | PROVIDERS: PCP Family Medicine; Visit Provider Thoracic Surgery (Cardiothoracic Vascular Surgery) | DX: L89.324 Pressure ulcer of left buttock, stage 4 (principal) | CPT/HCPCS: 97597 ==

== ENCOUNTER → 2023-09-29 09:49 | Outpatient (BNVA) | payer OTHER, SELFPAY | PROVIDERS: PCP Family Medicine; Visit Provider Thoracic Surgery (Cardiothoracic Vascular Surgery) | DX: L89.324 Pressure ulcer of left buttock, stage 4 (principal) | CPT/HCPCS: 97597 ==

== ENCOUNTER → 2023-10-20 09:54 | Outpatient (BNVA) | payer OTHER, SELFPAY | PROVIDERS: PCP Family Medicine; Visit Provider Thoracic Surgery (Cardiothoracic Vascular Surgery) | DX: L89.324 Pressure ulcer of left buttock, stage 4 (principal) | CPT/HCPCS: 97597; A6446 ==

== ENCOUNTER → 2023-11-03 10:03 | Outpatient (BNVA) | payer OTHER, SELFPAY | PROVIDERS: PCP Family Medicine; Visit Provider Thoracic Surgery (Cardiothoracic Vascular Surgery) | DX: L89.324 Pressure ulcer of left buttock, stage 4 (principal) | CPT/HCPCS: 97597 ==

== ENCOUNTER → 2023-11-05 12:14 | Outpatient (BNVA) | payer OTHER, SELFPAY | PROVIDERS: PCP Family Medicine; Visit Provider Specialist | DX: G82.20 Paraplegia, unspecified (principal); L89.90 Pressure ulcer of unspecified site, unspecified stage | CPT/HCPCS: 64642 ==

== ENCOUNTER → 2023-11-17 08:48 | Outpatient (BNVA) | payer OTHER, SELFPAY | PROVIDERS: PCP Family Medicine; Visit Provider Thoracic Surgery (Cardiothoracic Vascular Surgery) | DX: L89.324 Pressure ulcer of left buttock, stage 4 (principal) | CPT/HCPCS: 97597; A6446 ==

== ENCOUNTER → 2023-12-01 09:53 | Outpatient (BNVA) | payer OTHER, SELFPAY | PROVIDERS: PCP Family Medicine; Visit Provider Thoracic Surgery (Cardiothoracic Vascular Surgery) | DX: L89.324 Pressure ulcer of left buttock, stage 4 (principal) | CPT/HCPCS: 97597; A6212; A6446 ==

== ENCOUNTER → 2024-01-25 10:55 | Outpatient (BNVA) | payer MEDICARE, MEDICAID, SELFPAY | PROVIDERS: PCP Family Medicine; Visit Provider Thoracic Surgery (Cardiothoracic Vascular Surgery) | DX: I96 Gangrene, not elsewhere classified (principal); L89.324 Pressure ulcer of left buttock, stage 4 | CPT/HCPCS: 97597; A6212; A6446 ==

== ENCOUNTER → 2024-02-08 10:52 | Outpatient (BNVA) | payer MEDICARE, MEDICAID, SELFPAY | PROVIDERS: PCP Family Medicine; Visit Provider Thoracic Surgery (Cardiothoracic Vascular Surgery) | DX: L89.324 Pressure ulcer of left buttock, stage 4 (principal) | CPT/HCPCS: 97597 ==

== ENCOUNTER → 2024-02-15 13:40 | Outpatient (BNVA) | payer MEDICARE, MEDICAID, SELFPAY | PROVIDERS: PCP Family Medicine; Visit Provider Family Medicine | DX: R30.0 Dysuria (principal); N39.0 Urinary tract infection, site not specified | CPT/HCPCS: 81000; 87086 ==

== ENCOUNTER → 2024-02-18 11:35 | Outpatient (BNVA) | payer MEDICARE, MEDICAID, SELFPAY | PROVIDERS: PCP Family Medicine; Visit Provider Specialist | DX: G82.20 Paraplegia, unspecified (principal); L89.90 Pressure ulcer of unspecified site, unspecified stage | CPT/HCPCS: 64642 ==

== ENCOUNTER → 2024-02-22 10:40 | Outpatient (BNVA) | payer MEDICARE, MEDICAID, SELFPAY | PROVIDERS: PCP Family Medicine; Visit Provider Thoracic Surgery (Cardiothoracic Vascular Surgery) | DX: L89.324 Pressure ulcer of left buttock, stage 4 (principal) | CPT/HCPCS: 97597 ==

== ENCOUNTER → 2024-03-14 09:48 | Outpatient (BNVA) | payer MEDICARE, MEDICAID, SELFPAY | PROVIDERS: PCP Family Medicine; Visit Provider Thoracic Surgery (Cardiothoracic Vascular Surgery) | DX: L89.324 Pressure ulcer of left buttock, stage 4 (principal) | CPT/HCPCS: 97597; A6212; A6446 ==

== ENCOUNTER → 2024-04-11 10:34 | Outpatient (BNVA) | payer MEDICARE, MEDICAID, SELFPAY | PROVIDERS: PCP Family Medicine; Visit Provider Thoracic Surgery (Cardiothoracic Vascular Surgery) | DX: L89.324 Pressure ulcer of left buttock, stage 4 (principal) | CPT/HCPCS: 97597; A6446 ==

== ENCOUNTER → 2024-05-16 09:56 | Outpatient (BNVA) | payer MEDICARE, MEDICAID, SELFPAY | PROVIDERS: PCP Family Medicine; Visit Provider Thoracic Surgery (Cardiothoracic Vascular Surgery) | DX: L89.324 Pressure ulcer of left buttock, stage 4 (principal) | CPT/HCPCS: 97597 ==

== ENCOUNTER → 2024-05-27 10:58 | Outpatient (BNVA) | payer MEDICARE, MEDICAID, SELFPAY | PROVIDERS: PCP Family Medicine; Visit Provider Specialist | DX: G82.20 Paraplegia, unspecified (principal); L89.899 Pressure ulcer of other site, unspecified stage | CPT/HCPCS: 64642 ==

== ENCOUNTER → 2024-06-23 13:04 | Outpatient (BNVA) | payer MEDICARE, MEDICAID, SELFPAY | PROVIDERS: PCP Family Medicine; Visit Provider Family Medicine | DX: Z00.00 Encounter for general adult medical examination without abnormal findings (principal) | CPT/HCPCS: 80053; 80061; 84153; 85025 ==

== ENCOUNTER → 2024-06-27 10:28 | Outpatient (BNVA) | payer MEDICARE, MEDICAID, SELFPAY | PROVIDERS: PCP Family Medicine; Visit Provider Thoracic Surgery (Cardiothoracic Vascular Surgery) | DX: L89.324 Pressure ulcer of left buttock, stage 4 (principal) | CPT/HCPCS: 97597 ==

== ENCOUNTER 2024-06-30 13:03 | Outpatient (CLI) | payer MEDICARE, MEDICAID, SELFPAY | END 2024-06-30 13:04 | disposition home or self-care (01) | LOC: LAB 13:04 | PROVIDERS: PCP Family Medicine; Visit Provider Thoracic Surgery (Cardiothoracic Vascular Surgery) | DX: L89.324 Pressure ulcer of left buttock, stage 4 (principal) | CPT/HCPCS: 87070; 87075 ==

== ENCOUNTER → 2024-07-04 13:04 | Outpatient (BNVA) | payer MEDICARE, MEDICAID, SELFPAY | PROVIDERS: PCP Family Medicine; Visit Provider Thoracic Surgery (Cardiothoracic Vascular Surgery) | DX: I96 Gangrene, not elsewhere classified (principal); L89.324 Pressure ulcer of left buttock, stage 4 | CPT/HCPCS: 97597; A6446 ==

== ENCOUNTER 2024-08-01 11:00 | Outpatient (CLI) | payer MEDICARE, SELFPAY ==
[2024-08-01 11:39] LABS: Basophils # 0.1 10^3/uL (0.0-0.1); Basophils % 0.6 %; Eosinophils # 0.2 10^3/uL (0.0-0.8); Eosinophils % 1.6 %; Hematocrit 43.3 % (37-53); Lymphocytes # 2.3 10^3/uL (0.8-4.8); Lymphocytes % 23.8 %; Mean Corpuscular Hemoglobin 30.4 pg (27-33); Mean Corpuscular Volume 91.9 fl (82-101); Mean Platelet Volume 10.3 fL (7.4-10.4); Monocytes # 1.1 10^3/uL (0.2-0.9); Monocytes % 11.8 %; Neutrophils # 5.96 10^3/uL (1.8-7.7); Neutrophils % 61.9 %; Nucleated Red Blood Cells % 0 %; Platelet Count 202 10^3/cmm (157-399); Red Blood Count 4.71 10^6/uL (3.85-5.65); White Blood Count 9.63 10^3/uL (3.29-11.43)
[2024-08-01 11:56] LABS: Anion Gap 14.9 (5-19); Blood Urea Nitrogen 11 mg/dL (8-23); C Reactive Protein 53.9 mg/L (0.0-4.9); Calcium 8.9 mg/dL (8.5-10.5); Carbon Dioxide 23 mmol/L (22-29); Chloride 100 mmol/L (98-107); Glomerular Filtration Rate 136.5 mL/min (90-130); Glucose 89 mg/dL (65-115); Osmolality Calculated 277 mOsm/kg (285-295); Potassium 3.9 mmol/L (3.5-5.1); Sodium 134 mmol/L (136-145)
== END 2024-08-01 11:01 | disposition home or self-care (01) ==
PROVIDERS: PCP Family Medicine; Visit Provider Thoracic Surgery (Cardiothoracic Vascular Surgery)
DX: I96 Gangrene, not elsewhere classified (principal); L89.324 Pressure ulcer of left buttock, stage 4
CPT/HCPCS: 11044; 36415; 80048; 85025; 86140; 87070; 87077; 87176; 87186; 87205; A6446

== ENCOUNTER → 2024-08-08 09:23 | Outpatient (BNVA) | payer MEDICARE, SELFPAY | PROVIDERS: PCP Family Medicine; Visit Provider Thoracic Surgery (Cardiothoracic Vascular Surgery) | DX: L89.324 Pressure ulcer of left buttock, stage 4 (principal) | CPT/HCPCS: 11044; A6220; A6251; A6446 ==

== ENCOUNTER 2024-08-17 14:12 | Outpatient (CLI) | payer MEDICARE, MEDICAID, SELFPAY ==
--- NOTE | 2024-08-17 14:30 | CT_ITS ---
WS: [id number] CT abdomen pelvis wo/w [id number] REASON FOR EXAM: L89.304 - Pressure ulcer of unspecified buttock, stage 4 IV CONTRAST ADMINISTERED: 100 mL of Omnipaque 350 TOTAL EXAM DLP: 2631.[address] scans at [facility] use at least one of these dose optimization techniques: automated exposure control; mA and/or kV adjustment per patient size (includes targeted exams where dose is matched to clinical indication); or iterative reconstruction. FINDINGS: Comparison examination 03/27/2022. ABDOMEN: The abdomen is unchanged compared to the previous examination. The liver, spleen, and pancreas are unremarkable. Adrenal glands are normal. Small cyst posteriorly in the left mid kidney. No abdominal mass or adenopathy. No abdominal free fluid or focal fluid collection. PELVIS: Diverticulosis without evidence of diverticulitis. Moderate bladder distention. No bladder calculus. Old healed decubitus ulcer tract to the right ischial tuberosity and along the greater trochanter. Fragmentation and heterotopic bone and sclerosis in the greater tuberosity and ischium. No change compared to the previous examination. Decubitus ulcer in the left buttock with thick walled air-containing tract extending to the left inferior pubic ramus where there is some fragmentation and bony sclerosis. The bony changes are stable compared to the previous examination. The air-containing tract has decreased in volume compared to the previous study. No new findings or other interval change in the pelvis compared to the previous study. CT/CT abdomen pelvis wo/w [id number] IMPRESSION: The left decubitus ulcer and tract have decreased in volume. The bony changes a re stable. Presumed healed decubitus ulcer and tract and bone changes on the right.
[2024-08-17] MEDS: iohexol 350 mg/mL 500 mL Btl (per mL) IV (14:34)
== END 2024-08-17 14:13 | disposition home or self-care (01) ==
PROVIDERS: PCP Family Medicine; Visit Provider Thoracic Surgery (Cardiothoracic Vascular Surgery)
DX: L89.324 Pressure ulcer of left buttock, stage 4 (principal); N28.1 Cyst of kidney, acquired; K57.30 Diverticulosis of large intestine without perforation or abscess without bleeding; N32.89 Other specified disorders of bladder; R93.89 Abnormal findings on diagnostic imaging of other specified body structures
CPT/HCPCS: 74178

== ENCOUNTER → 2024-08-22 09:43 | Outpatient (BNVA) | payer MEDICARE, MEDICAID, SELFPAY | PROVIDERS: PCP Family Medicine; Visit Provider Thoracic Surgery (Cardiothoracic Vascular Surgery) | DX: L89.324 Pressure ulcer of left buttock, stage 4 (principal) | CPT/HCPCS: 11044; A6220; A6251; A6446 ==

== ENCOUNTER → 2024-08-26 10:36 | Outpatient (BNVA) | payer MEDICARE, MEDICAID, SELFPAY | PROVIDERS: PCP Family Medicine; Visit Provider Specialist | DX: G82.20 Paraplegia, unspecified (principal) | CPT/HCPCS: 64642 ==

== ENCOUNTER → 2024-09-12 09:51 | Outpatient (BNVA) | payer MEDICARE, MEDICAID, SELFPAY | PROVIDERS: PCP Family Medicine; Visit Provider Thoracic Surgery (Cardiothoracic Vascular Surgery) | DX: I96 Gangrene, not elsewhere classified (principal); L89.324 Pressure ulcer of left buttock, stage 4 | CPT/HCPCS: 97597 ==

== ENCOUNTER → 2024-09-26 09:40 | Outpatient (BNVA) | payer MEDICARE, MEDICAID, SELFPAY | PROVIDERS: PCP Family Medicine; Visit Provider Thoracic Surgery (Cardiothoracic Vascular Surgery) | DX: I96 Gangrene, not elsewhere classified (principal); L89.324 Pressure ulcer of left buttock, stage 4 | CPT/HCPCS: 97597; A6220; A6251; A6446 ==

== ENCOUNTER → 2024-10-10 09:52 | Outpatient (BNVA) | payer MEDICARE, MEDICAID, SELFPAY | PROVIDERS: PCP Family Medicine; Visit Provider Thoracic Surgery (Cardiothoracic Vascular Surgery) | DX: I96 Gangrene, not elsewhere classified (principal); L89.324 Pressure ulcer of left buttock, stage 4 | CPT/HCPCS: 97597; A6220; A6251 ==

== ENCOUNTER → 2024-10-24 09:44 | Outpatient (BNVA) | payer MEDICARE, MEDICAID, SELFPAY | PROVIDERS: PCP Family Medicine; Visit Provider Thoracic Surgery (Cardiothoracic Vascular Surgery) | DX: I96 Gangrene, not elsewhere classified (principal); L89.324 Pressure ulcer of left buttock, stage 4 | CPT/HCPCS: 97597; A6446 ==

== ENCOUNTER → 2024-11-07 10:00 | Outpatient (BNVA) | payer MEDICARE, MEDICAID, SELFPAY | PROVIDERS: PCP Family Medicine; Visit Provider Thoracic Surgery (Cardiothoracic Vascular Surgery) | DX: I96 Gangrene, not elsewhere classified (principal); L89.324 Pressure ulcer of left buttock, stage 4 | CPT/HCPCS: 97597; A6220; A6251; A6446 ==

== ENCOUNTER → 2024-11-21 09:56 | Outpatient (BNVA) | payer MEDICARE, MEDICAID, SELFPAY | PROVIDERS: PCP Family Medicine; Visit Provider Thoracic Surgery (Cardiothoracic Vascular Surgery) | DX: L89.324 Pressure ulcer of left buttock, stage 4 (principal) | CPT/HCPCS: 97597; A6220; A6251; A6446 ==

== ENCOUNTER 2024-11-23 13:34 | Outpatient (CLI) | payer MEDICARE, SELFPAY ==
[2024-11-23 13:53] LABS: Bilirubin Urine Negative (Negative); Blood Urine 2+ (Negative); Glucose Urine UA Negative (Normal); Ketones Urine Negative (Negative); Leukocyte Esterase Urine 3+ (Negative); Nitrate Urine Negative (Negative); Protein Urine 1+ (Negative); Specific Gravity, Urine 1.018 (1.005-1.030); Urine Appearance Cloudy (CLEAR); Urine Color Yellow (Yellow)
[2024-11-23 13:58] LABS: Add Urine Microscopic? YES; Bacteria Urine 4+ /hpf; RBC Urine 21-50 /hpf (0-2); Squamous Epithelial Cell Urine 0-5 /hpf (0-5); WBC Urine >100 /hpf (0-5)
[2024-11-23 13:59] LABS: Add Urine Culture? No
== END 2024-11-23 13:35 | disposition home or self-care (01) ==
PROVIDERS: PCP Family Medicine; Visit Provider Thoracic Surgery (Cardiothoracic Vascular Surgery)
DX: N39.0 Urinary tract infection, site not specified (principal)
CPT/HCPCS: 81001; 87086

== ENCOUNTER → 2024-11-25 10:25 | Outpatient (BNVA) | payer MEDICARE, MEDICAID, SELFPAY | PROVIDERS: PCP Family Medicine; Visit Provider Specialist | DX: G82.20 Paraplegia, unspecified (principal) | CPT/HCPCS: 64642; J9999 ==

== ENCOUNTER → 2024-12-19 09:57 | Outpatient (BNVA) | payer MEDICARE, MEDICAID, SELFPAY | PROVIDERS: PCP Family Medicine; Visit Provider Thoracic Surgery (Cardiothoracic Vascular Surgery) | DX: I96 Gangrene, not elsewhere classified (principal); L89.324 Pressure ulcer of left buttock, stage 4 | CPT/HCPCS: 97597; A6212; A6446 ==

== ENCOUNTER 2025-01-04 13:20 | Outpatient (CLI) | payer MEDICARE, SELFPAY ==
[2025-01-04 13:35] LABS: Glucose Urine UA Negative (Normal); Nitrate Urine Positive (Negative); Specific Gravity, Urine 1.020 (1.005-1.030)
== END 2025-01-04 13:21 | disposition home or self-care (01) ==
PROVIDERS: PCP Family Medicine; Visit Provider Family Medicine
DX: N39.0 Urinary tract infection, site not specified (principal)
CPT/HCPCS: 81001; 87077; 87086; 87186

== ENCOUNTER → 2025-01-09 09:12 | Outpatient (BNVA) | payer MEDICARE, SELFPAY | PROVIDERS: PCP Family Medicine; Visit Provider Thoracic Surgery (Cardiothoracic Vascular Surgery) | DX: I96 Gangrene, not elsewhere classified (principal); L89.324 Pressure ulcer of left buttock, stage 4 | CPT/HCPCS: 97597 ==

== ENCOUNTER 2025-02-14 13:30 | Outpatient (CLI) | payer MEDICARE, SELFPAY ==
[2025-02-14 13:56] LABS: Hematocrit 41.5 % (37-53); Hemoglobin 13.70 g/dL (11.27-16.99); Mean Corpuscular HGB Conc 33.0 g/dL (30-55); Mean Corpuscular Hemoglobin 29.5 pg (27-33); Mean Corpuscular Volume 89.2 fl (82-101); Nucleated Red Blood Cells % 0 %; Platelet Count 255 10^3/cmm (157-399); Red Blood Count 4.65 10^6/uL (3.85-5.65); White Blood Count 10.14 10^3/uL (3.29-11.43)
== END 2025-02-14 13:31 | disposition home or self-care (01) ==
PROVIDERS: PCP Family Medicine
DX: L89.324 Pressure ulcer of left buttock, stage 4 (principal)
CPT/HCPCS: 85025

== ENCOUNTER 2025-02-20 17:18 | Outpatient (CLI) | payer MEDICARE, SELFPAY ==
[2025-02-20 17:44] LABS: Hematocrit 43.6 % (37-53); Hemoglobin 14.70 g/dL (11.27-16.99); Mean Corpuscular HGB Conc 33.7 g/dL (30-55); Mean Corpuscular Hemoglobin 30.2 pg (27-33); Mean Corpuscular Volume 89.7 fl (82-101); Nucleated Red Blood Cells % 0 %; Platelet Count 276 10^3/cmm (157-399); Red Blood Count 4.86 10^6/uL (3.85-5.65); White Blood Count 9.57 10^3/uL (3.29-11.43)
== END 2025-02-20 17:19 | disposition home or self-care (01) ==
LOC: LAB 17:19
PROVIDERS: PCP Family Medicine; Visit Provider Thoracic Surgery (Cardiothoracic Vascular Surgery)
DX: L89.324 Pressure ulcer of left buttock, stage 4 (principal)
CPT/HCPCS: 85025